=== PATIENT | female | born 1980 | race Caucasian/White ===

== ENCOUNTER 2016-03-15 19:34 | Emergency (ER) | payer OTHER ==
[2016-03-15 19:38] VITALS: BP 155/84
[2016-03-15] MEDS ORDERED: Clindamycin CAP* 150 MG PO ONE (19:54)
[2016-03-15] MEDS ORDERED: Lidocaine 2% VISCOUS* 15 ML UDC SWISH SPIT ONE (19:54)
[2016-03-15] MEDS ORDERED: oxyCODONE/Acetamin 5/325 MG* TAB PO ONE (19:54)
--- NOTE | 2016-03-15 20:08 | ED ---
Throat Pain/Nasal Congestion - HPI Summary HPI Summary: 35 y/o female with h/o pain in wisdom tooth (back posterior L) x 3 week, increasing in pain, noted increased swelling and pain over past 24 hours, no fever, chills, no drainage in mouth but + mouth sores x 2 weeks. H/O mouth sores in past. Patient called dentist today did not get call back. - History of Current Complaint Chief Complaint: EDDentalPain Time Seen by Provider: 03/15/16 19:41 Hx Obtained From: Patient Onset/Duration: Gradual Onset, Lasting Weeks, Still Present Severity: Moderate Associated Signs And Symptoms: Positive: Negative Related History: Smoking - Allergies/Home Medications Allergies/Adverse Reactions: Allergies Allergy/AdvReac Type Severity Reaction Status Date / Time Ibuprofen [From Motrin] Allergy Severe Shortness Verified 02/26/16 01:09 of Breath Loratadine [From Claritin-D] Allergy Severe Shortness Verified 02/26/16 01:09 of Breath Pseudoephedrine Allergy Severe Shortness Verified 02/26/16 01:09 [From Claritin-D] of Breath Amoxicillin Allergy Intermediate Rash And Verified 02/26/16 01:09 Itching Aspirin Allergy Intermediate Rash And Verified 02/26/16 01:09 Itching Penicillins Allergy Intermediate Rash And Verified 02/26/16 01:09 Itching Latex Allergy Mild Rash And Verified 02/26/16 01:09 Itching Perfume Allergy Mild Difficulty Verified 02/26/16 01:09 Breathing Shellfish Allergy Allergy Mild Rash Verified 02/26/16 01:09 Adhesive Tape Allergy Rash Verified 02/26/16 01:09 Lactose Intolerance (GI) AdvReac Diarrhea Verified 02/26/16 01:09 tegaderm Allergy Rash Uncoded 02/26/16 01:09 milk AdvReac Diarrhea Uncoded 02/26/16 01:09 PMH/Surg Hx/FS Hx/Imm Hx Previously Healthy: No Endocrine/Hematology History: Reports: Hx Anemia - NOT CURRENTLY Denies: Hx Anticoagulant Therapy, Hx Diabetes, Hx Thyroid Disease Cardiovascular History: Denies: Hx Hypertension, Hx Pacemaker/ICD Respiratory History: Reports: Hx Asthma Denies: Hx Chronic Obstructive Pulmonary Disease (COPD) GI History: Reports: Hx Irritable Bowel Denies: Hx Ulcer History: Reports: Hx Kidney Infection - HX OF Denies: Hx Renal Disease Musculoskeletal History: Reports: Hx Arthritis - LUMBAR, Hx Back Problems, Hx Scoliosis Sensory History: Reports: Hx Contacts or Glasses - GLASSES Denies: Hx Hearing Aid Opthamlomology History: Reports: Hx Contacts or Glasses - GLASSES Neurological History: Reports: Hx Migraine - OCC, Other Neuro Impairments/ 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 nasal Hx Anesthesia Reactions: No - Immunization History Date of Tetanus Vaccine: Unk Date of Influenza Vaccine: Fall 2012 Infectious Disease History: No Infectious Disease History: Reports: Hx of Known/Suspected MRSA Denies: Hx Hepatitis, Hx Human Immunodeficiency Virus (HIV), History Other Infectious Disease, Traveled Outside the [place] in Last 30 Days - Family History Known Family History: Positive: Diabetes - Social History Alcohol Use: None Hx Substance Use: No Substance Use Type: Reports: None Substance Use Comment - Amount & Last Used: medical marijauna- asthma- and black outs Hx Tobacco Use: No Smoking Status (MU): Heavy Every Day Tobacco Smoker Length of Time of Smoking/Using Tobacco: 2 yrs Have You Smoked in the Last Year: No Review of Systems Constitutional: Negative Eyes: Negative Positive: Dental Pain Cardiovascular: Negative Respiratory: Negative Gastrointestinal: Negative Genitourinary: Negative Positive: Edema - mild edema over L cheek Skin: Negative Neurological: Negative Psychological: Normal All Other Systems Reviewed And Are Negative: Yes Physical Exam Triage Information Reviewed: Yes Vital Signs On Initial Exam: Initial Vitals Temp Pulse Resp BP Pulse Ox 99.3 F 96 16 155/84 100 03/15/16 19:35 03/15/16 19:35 03/15/16 19:35 03/15/16 19:35 03/15/16 19:35 Vital Signs Reviewed: Yes Appearance: Positive: Well-Appearing, Well-Nourished, Pain Distress - mild Skin: Positive: Warm, Skin Color Reflects Adequate Perfusion Head/Face: Positive: Normal Head/Face Inspection Eyes: Positive: Normal, EOMI, Conjunctiva Clear ENT: Positive: Normal ENT inspection, Hearing grossly normal, Pharynx normal, Other - mucosa pink, no drainage noted, two small superficial sores noted over L cheek and under tongue, left side, no drainage, minimal erythema on edges, pain with palpation over L lower molar, no fluctuant mass, no warmth, no erythema. minimal fullness, no fluctuance over outer cheek, no LAD, full cervical spine motion, no erythema outside cheek. Diagnostics - Vital Signs Vital Signs Temp Pulse Resp BP Pulse Ox 03/15/16 19:35 99.3 F 96 16 155/84 100 - Laboratory Lab Statement: Any lab studies that have been ordered have been reviewed, and results considered in the medical decision making process. EENT Course/Dx - Course Course Of Treatment: lidocaine lolipop given, percocet to go home with, lidocaine swish and swallow, clindamycin for possible infection, f/u with dentist tomorrow. - Diagnoses Provider Diagnoses: Toothache, Canker sores oral Discharge - Discharge Plan Condition: Good Disposition: HOME Prescriptions: Clindamycin CAP* [Cleocin 150 MG CAP*] 150 mg PO Q6H #40 cap Lidocaine 2% VISCOUS* 20 ml .SEE ORDER Q8H PRN #200 ml PRN Reason: Pain oxyCODONE/Acetamin 5/325 MG* [Percocet 5/325 TAB*] 1 tab PO Q8H PRN #5 tab MDD 3 PRN Reason: Pain Patient Education Materials: Canker Sores (ED), Narcotic Pain Management (ED), Toothache (ED) Referrals: No Primary Care Phys,NOPCP [Primary Care Provider] - Additional Instructions: - Lidocaine swish and swallow every 8 hours as needed for mouth sore pain - Do not gargle with alcohol or hydrogen peroxide, rinse with water after eating - Percocet as needed for severe pain - Clindamycin 150mg every 6 hours for possible infection x 10 days - Follow up with your dentist tomorrow - REturn to ER with increased pain, swelling, fever, chills
== END 2016-03-15 20:27 | disposition home or self-care (01) ==
LOC: ED 19:34
DX: K08.89 Other specified disorders of teeth and supporting structures (principal); K12.0 Recurrent oral aphthae; Z88.6 Allergy status to analgesic agent; Z88.0 Allergy status to penicillin; Z88.8 Allergy status to other drugs, medicaments and biological substances; F17.210 Nicotine dependence, cigarettes, uncomplicated
CPT/HCPCS: 99282; A9270-GY

== ENCOUNTER 2016-03-31 13:33 | Emergency (ER) | payer OTHER ==
[2016-03-31 13:43] VITALS: BP 155/78
--- NOTE | 2016-03-31 13:56 | ED ---
Throat Pain/Nasal Congestion - HPI Summary HPI Summary: 35 female presents today complaining of nosebleeds that occurred yesterday on and this morning 03/31/16 around 11a. She states yesterday the 2 nosebleeds lasted a few hours and was difficult to stop and today her nose bleed lasted around 15 minutes. It currently is not actively bleeding. It hasn' t the past few hours. Patient's CPS worker suggested she get checked out either here or at the . She states she sometimes feels dizzy but she has vertigo and it was mainly from looking at all the blood. She does not feel dizzy or lightheaded right now. She states she had iron deficiency anemia when she was and nasal reconstruction when she was 16. She also was unsure if there were stitches still in her nose from the surgery when she was 16 years old that are possibly causing the bleeding. Denies difficulty breathing, SOB, chest pain and pain anywhere. No recent trauma to this nose. She states pinching her nares and tilting her head to the side helped stop the bleeding. She has not used any nasal sprays. She does use a humidifier at home and prophylactically uses vasoline in both nares. - History of Current Complaint Chief Complaint: EDEpistaxis Time Seen by Provider: 03/31/16 13:51 Hx Obtained From: Patient Onset/Duration: Sudden Onset Severity: Mild Associated Signs And Symptoms: Positive: Nasal Discharge - bleeding, not currently Cough: None - Allergies/Home Medications Allergies/Adverse Reactions: Allergies Allergy/AdvReac Type Severity Reaction Status Date / Time Ibuprofen [From Motrin] Allergy Severe Shortness Verified 02/26/16 01:09 of Breath Loratadine [From Claritin-D] Allergy Severe Shortness Verified 02/26/16 01:09 of Breath Pseudoephedrine Allergy Severe Shortness Verified 02/26/16 01:09 [From Claritin-D] of Breath Amoxicillin Allergy Intermediate Rash And Verified 02/26/16 01:09 Itching Aspirin Allergy Intermediate Rash And Verified 02/26/16 01:09 Itching Penicillins Allergy Intermediate Rash And Verified 02/26/16 01:09 Itching Latex Allergy Mild Rash And Verified 02/26/16 01:09 Itching Perfume Allergy Mild Difficulty Verified 02/26/16 01:09 Breathing Shellfish Allergy Allergy Mild Rash Verified 02/26/16 01:09 Adhesive Tape Allergy Rash Verified 02/26/16 01:09 Lactose Intolerance (GI) AdvReac Diarrhea Verified 02/26/16 01:09 tegaderm Allergy Rash Uncoded 02/26/16 01:09 milk AdvReac Diarrhea Uncoded 02/26/16 01:09 PMH/Surg Hx/FS Hx/Imm Hx Endocrine/Hematology History: Reports: Hx Anemia - NOT CURRENTLY Denies: Hx Anticoagulant Therapy, Hx Diabetes, Hx Thyroid Disease Cardiovascular History: Denies: Hx Hypertension, Hx Pacemaker/ICD Respiratory History: Reports: Hx Asthma Denies: Hx Chronic Obstructive Pulmonary Disease (COPD) GI History: Reports: Hx Irritable Bowel Denies: Hx Ulcer History: Reports: Hx Kidney Infection - HX OF Denies: Hx Renal Disease Musculoskeletal History: Reports: Hx Arthritis - LUMBAR, Hx Back Problems, Hx Scoliosis Sensory History: Reports: Hx Contacts or Glasses - GLASSES Denies: Hx Hearing Aid Opthamlomology History: Reports: Hx Contacts or Glasses - GLASSES Neurological History: Reports: Hx Migraine - OCC, Other Neuro Impairments/ 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 nasal Hx Anesthesia Reactions: No - Immunization History Date of Tetanus Vaccine: Unk Date of Influenza Vaccine: Fall 2012 Infectious Disease History: No Infectious Disease History: Reports: Hx of Known/Suspected MRSA Denies: Hx Hepatitis, Hx Human Immunodeficiency Virus (HIV), History Other Infectious Disease, Traveled Outside the [place] in Last 30 Days - Family History Known Family History: Positive: Diabetes - Social History Alcohol Use: None Hx Substance Use: No Substance Use Type: Reports: None Substance Use Comment - Amount & Last Used: medical marijauna- asthma- and black outs Hx Tobacco Use: No Smoking Status (MU): Heavy Every Day Tobacco Smoker Length of Time of Smoking/Using Tobacco: 2 yrs Have You Smoked in the Last Year: No Review of Systems Constitutional: Negative Eyes: Negative Positive: Epistaxis - prior to arrival, not actively bleeding Cardiovascular: Negative Respiratory: Negative Gastrointestinal: Negative Skin: Negative Neurological: Negative - some dizziness when looking at the blood, not currently Psychological: Normal All Other Systems Reviewed And Are Negative: Yes Physical Exam Triage Information Reviewed: Yes Vital Signs On Initial Exam: Initial Vitals Temp Pulse Resp BP Pulse Ox 98.4 F 81 20 155/78 100 03/31/16 13:39 03/31/16 13:39 03/31/16 13:39 03/31/16 13:39 03/31/16 13:39 BP elevated. compared to previous visits and similar ranges. Vital Signs Reviewed: Yes Appearance: Positive: Well-Appearing, No Pain Distress, Well-Nourished Skin: Positive: Warm, Skin Color Reflects Adequate Perfusion - <2 seconds, no nail pitting, Dry. Negative: Diaphoretic Head/Face: Positive: Normal Head/Face Inspection Eyes: Positive: Normal ENT: Positive: Hearing grossly normal, Pharynx normal - no smooth tongue noted, well hydrated, TMs normal, Other - minimal dried blood noted in right nare. no signs of trauma. no step-off, crepitus or racoon eyes. no active bleeding source noted. cauterize and packing not needed at this time. allergy to pseudoepherine so some NS was sprayed in both nares to help mosturize and prevent recurrent epistaxis. no septal hematoma present.. Negative: Nasal congestion, Nasal drainage Neck: Positive: Supple, Nontender, No Lymphadenopathy Respiratory/Lung Sounds: Positive: Clear to Auscultation, Breath Sounds Present , Decreased Breath Sounds Cardiovascular: Positive: Normal, RRR, Pulses are Symmetrical in both Upper and Lower Extremities Neurological: Positive: Normal, Sensory/Motor Intact, Alert, Oriented to Person Place, Time. Negative: Disoriented Psychiatric: Positive: Affect/Mood Appropriate Diagnostics - Vital Signs Vital Signs Temp Pulse Resp BP Pulse Ox 03/31/16 13:39 98.4 F 81 20 155/78 100 - Laboratory Lab Statement: Any lab studies that have been ordered have been reviewed, and results considered in the medical decision making process. EENT Course/Dx - Course Course Of Treatment: patient has allergy to pseudoephedrine so NS was used to spray in both nares to prevent reurrent epistaxis. instructed on proper way to stop nasal bleeding. told to get saline spray OTC and advised to have bloodowork with mental health doctor if she is still concerned with Fe def anemia. did not feel the need at this time. also recommended to follow up with communications specialist she seen for nasal surgery if nosebleeds persist. aware of worsening symptoms to watch out for. - Differential Diagnoses Differential Diagnoses: Epistaxis, Polyps, Sinusitis - Diagnoses Provider Diagnoses: Anterior epistaxis, Right-sided epistaxis Discharge - Discharge Plan Condition: Stable Disposition: HOME Patient Education Materials: Nosebleed (ED) Referrals: No Primary Care Phys,NOPCP [Primary Care Provider] - [facility] [facility]FERR[facility] [Outside] Additional Instructions: Use OTC Saline [place] to help prevent nosebleeds. Continue using humidifiers in your house to keep air moist and vasoline in nares as needed. Avoid taking medications such as aspirin and anti-inflammatory medications like motrin or tylenol for the next few days. Drink plenty of fluids. Follow-up with your primary care doctor or communications specialist for further evaluation. If another one occurs and bleeding lasts longer than 2 hours please seek medical attention promptly for further action such as packing.
== END 2016-03-31 14:25 | disposition home or self-care (01) ==
LOC: ED 13:33
DX: R04.0 Epistaxis (principal); Z72.0 Tobacco use; J45.909 Unspecified asthma, uncomplicated; Z88.0 Allergy status to penicillin; Z88.6 Allergy status to analgesic agent
CPT/HCPCS: 99282

== ENCOUNTER 2016-08-02 22:12 | Emergency (ER) | payer OTHER ==
[2016-08-02] MEDS ORDERED: Acetaminophen TAB* 325 MG PO ONE (23:01)
[2016-08-02 23:50] LABS: Hematocrit 41 % (35-47); Hemoglobin 13.6 g/dl (12.0-16.0); Mean Corpuscular HGB Conc 33 g/dl (31-36); Mean Corpuscular Hemoglobin 27 pg (27-31); Mean Corpuscular Volume 82 fL (80-97); Mean Platelet Volume 9 um3 (7.4-10.4); Red Cell Distribution Width 15 % (10.5-15); White Blood Count 9.8 10^3/ul (3.5-10.8)
[2016-08-02 23:59] LABS: ALT 15 U/L (7-52); AST 17 U/L (13-39); Albumin 3.7 g/dL (3.2-5.2); Alkaline Phosphatase 65 U/L (34-104); Anion Gap 5 mmol/L (2-11); BUN/Creatinine Ratio 13.2 (8-20); Blood Urea Nitrogen 10 mg/dL (6-24); CO2 Carbon Dioxide 26 mmol/L (22-32); Calcium 8.7 mg/dL (8.6-10.3); Chloride 105 mmol/L (101-111); EGFR African American 109.5 (>60); EGFR Non-African American 85.2 (>60); Globulin 2.8 g/dL (2-4); Glucose 119 mg/dL (70-100); Potassium 3.2 mmol/L (3.5-5.0); Sodium 136 mmol/L (133-145); Total Protein 6.5 g/dL (6.4-8.9)
[2016-08-03 00:17] VITALS: BP 126/72
--- NOTE | 2016-08-03 00:29 | ED ---
GI/ HPI - HPI Summary HPI Summary: Patient presents to ED with CC of vaginal bleeding since yesterday soaking through 3 pads since 2pm this afternoon - approx 6 hours ago. She is also passing blood clots. She denies vaginal bleeding since arrival to the ED. She was on the depoprovera shot until 3 months ago and has not had vaginal bleeding until yesterday. She notes to a D and C prior to the of her child and several cancers run in her family and she is concerned about CA. She admits to chills, sweats and fevers yesterday, but nothing today or currently. She has not felt dizzy or lightheaded. She notes to a 10/10 pain which is located suprapubically. She denies urinary symptoms or back pain. She has never been dx with endometriosis or fibroids. - History of Current Complaint Chief Complaint: EDVaginalBleeding Time Seen by Provider: 08/02/16 22:48 Stated Complaint: VAGINAL BLEEDING Hx Obtained From: Patient Onset/Duration: Started Days Ago Timing: Constant Severity: Moderate Current Severity: Moderate Vaginal Bleeding Description: Bright Red Number of Pads per Day: 6 Number of Pads per Hour: 1 Pain Intensity: 10 Location of Pain: Suprapubic Additional Location for Females: Uterus Pain Characteristics: Sharp, Cramping Associated Signs and Symptoms: Positive: Negative Additional Signs & Symptoms: Positive: Depo provera Aggravating Factor(s): Nothing Alleviating Factor(s): Nothing - Allergy/Home Medications Allergies/Adverse Reactions: Allergies Allergy/AdvReac Type Severity Reaction Status Date / Time Ibuprofen [From Motrin] Allergy Severe Shortness Verified 02/26/16 01:09 of Breath Loratadine [From Claritin-D] Allergy Severe Shortness Verified 02/26/16 01:09 of Breath Pseudoephedrine Allergy Severe Shortness Verified 02/26/16 01:09 [From Claritin-D] of Breath Amoxicillin Allergy Intermediate Rash And Verified 02/26/16 01:09 Itching Aspirin Allergy Intermediate Rash And Verified 02/26/16 01:09 Itching Penicillins Allergy Intermediate Rash And Verified 02/26/16 01:09 Itching Latex Allergy Mild Rash And Verified 02/26/16 01:09 Itching Perfume Allergy Mild Difficulty Verified 02/26/16 01:09 Breathing Shellfish Allergy Allergy Mild Rash Verified 02/26/16 01:09 Adhesive Tape Allergy Rash Verified 02/26/16 01:09 Lactose Intolerance (GI) AdvReac Diarrhea Verified 02/26/16 01:09 tegaderm Allergy Rash Uncoded 02/26/16 01:09 milk AdvReac Diarrhea Uncoded 02/26/16 01:09 PMH/Surg Hx/FS Hx/Imm Hx Previously Healthy: Yes Endocrine/Hematology History: Reports: Hx Anemia - NOT CURRENTLY Denies: Hx Anticoagulant Therapy, Hx Diabetes, Hx Thyroid Disease Cardiovascular History: Denies: Hx Hypertension, Hx Pacemaker/ICD Respiratory History: Reports: Hx Asthma Denies: Hx Chronic Obstructive Pulmonary Disease (COPD) GI History: Reports: Hx Irritable Bowel Denies: Hx Ulcer History: Reports: Hx Kidney Infection - HX OF Denies: Hx Renal Disease Musculoskeletal History: Reports: Hx Arthritis - LUMBAR, Hx Back Problems, Hx Scoliosis Sensory History: Reports: Hx Contacts or Glasses - GLASSES Denies: Hx Hearing Aid Opthamlomology History: Reports: Hx Contacts or Glasses - GLASSES Neurological History: Reports: Hx Migraine - OCC, Other Neuro Impairments/ 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 nasal Hx Anesthesia Reactions: No - Immunization History Date of Tetanus Vaccine: Unk Date of Influenza Vaccine: Fall 2012 Hx Pertussis Vaccination: No Immunizations Up to Date: Unable to Obtain/Confirm Infectious Disease History: No Infectious Disease History: Reports: Hx of Known/Suspected MRSA Denies: Hx Hepatitis, Hx Human Immunodeficiency Virus (HIV), History Other Infectious Disease, Traveled Outside the [place] in Last 30 Days - Family History Known Family History: Positive: Diabetes - Social History Occupation: Unemployed Lives: With Family Alcohol Use: None Hx Substance Use: No Substance Use Type: Reports: None Substance Use Comment - Amount & Last Used: medical marijauna- asthma- and black outs Hx Tobacco Use: No Smoking Status (MU): Heavy Every Day Tobacco Smoker Length of Time of Smoking/Using Tobacco: 2 yrs Have You Smoked in the Last Year: No Review of Systems Constitutional: Negative Eyes: Negative Cardiovascular: Negative Respiratory: Negative Positive: no symptoms reported, see HPI, other - vaginal bleeding Skin: Negative Neurological: Negative All Other Systems Reviewed And Are Negative: Yes Physical Exam Triage Information Reviewed: Yes Vital Signs On Initial Exam: Initial Vitals Temp Pulse Resp BP Pulse Ox 98 F 88 20 135/65 95 08/02/16 22:27 08/02/16 22:27 08/02/16 22:27 08/02/16 22:27 08/02/16 22:27 Vital Signs Reviewed: Yes Appearance: Positive: Well-Appearing, No Pain Distress, Well-Nourished Skin: Positive: Warm, Skin Color Reflects Adequate Perfusion Head/Face: Positive: Normal Head/Face Inspection Eyes: Positive: EOMI, SYLWIA, Conjunctiva Clear Neck: Positive: Supple, No Lymphadenopathy Respiratory/Lung Sounds: Positive: Clear to Auscultation, Breath Sounds Present Cardiovascular: Positive: Normal, RRR, Pulses are Symmetrical in both Upper and Lower Extremities Abdomen Description: Positive: Nontender, Soft Musculoskeletal: Positive: Normal, Strength/ROM Intact Neurological: Positive: Speech Normal - Bindu Coma Scale Coma Scale Total: 15 Diagnostics - Vital Signs Vital Signs Temp Pulse Resp BP Pulse Ox 08/03/16 00:16 98.6 F 63 16 126/72 08/02/16 22:27 98 F 88 20 135/65 95 - Laboratory Lab Results: Lab Results 08/02/16 08/02/16 Range/Units 23:31 23:31 WBC 9.8 (3.5-10.8) 10^3/ul RBC 5.00 (4.0-5.4) 10^6/ul Hgb 13.6 (12.0-16.0) g/dl Hct 41 (35-47) % MCV 82 (80-97) fL MCH 27 (27-31) pg MCHC 33 (31-36) g/dl RDW 15 (10.5-15) % Plt Count 225 (150-450) 10^3/ul MPV 9 (7.4-10.4) um3 Neut % (Auto) 70.1 (38-83) % Lymph % (Auto) 23.4 L (25-47) % Jack % (Auto) 4.0 (1-9) % Eos % (Auto) 1.8 (0-6) % Baso % (Auto) 0.7 (0-2) % Absolute Neuts (auto) 6.9 (1.5-7.7) 10^3/ul Absolute Lymphs (auto) 2.3 (1.0-4.8) 10^3/ul Absolute Monos (auto) 0.4 (0-0.8) 10^3/ul Absolute Eos (auto) 0.2 (0-0.6) 10^3/ul Absolute Basos (auto) 0.1 (0-0.2) 10^3/ul Absolute Nucleated RBC 0 10^3/ul Nucleated RBC % 0 Sodium 136 (133-145) mmol/L Potassium 3.2 L (3.5-5.0) mmol/L Chloride 105 (101-111) mmol/L Carbon Dioxide 26 (22-32) mmol/L Anion Gap 5 (2-11) mmol/L BUN 10 (6-24) mg/dL Creatinine 0.76 (0.51-0.95) mg/dL Est GFR ( Amer) 109.5 (>60) Est GFR (Non-Af Amer) 85.2 (>60) BUN/Creatinine Ratio 13.2 (8-20) Glucose 119 H (70-100) mg/dL Calcium 8.7 (8.6-10.3) mg/dL Total Bilirubin 0.20 (0.2-1.0) mg/dL AST 17 (13-39) U/L ALT 15 (7-52) U/L Alkaline Phosphatase 65 (34-104) U/L Total Protein 6.5 (6.4-8.9) g/dL Albumin 3.7 (3.2-5.2) g/dL Globulin 2.8 (2-4) g/dL Albumin/Globulin Ratio 1.3 (1-3) Beta HCG, Quant < 0.60 mIU/mL Result Diagrams: 08/02/16 23:31 08/02/16 23:31 Lab Statement: Any lab studies that have been ordered have been reviewed, and results considered in the medical decision making process. GIGU Course/Dx - Course Course Of Treatment: Patient arrives with vaginal bleeding x 2 days with soaking through 6 pads per day. She dc'd the depo shot 3 months ago and this is her first BTB. Bright red blood with clots. She took tranexamic acid which she was prescribed a few years ago for similar symptoms but without relief. Dr. Rasheed called and consulted. No Transvaginal US is needed. Will follow up in office d/t stable VS and H and H WNL. Patient is OK with discharge. Encouraged Tylenol. - Diagnoses Differential Diagnoses - Female: Other - vaginal bleeding, endometriosis, ovarian pathology Provider Diagnoses: Vaginal bleeding Discharge - Discharge Plan Condition: Stable Disposition: HOME Patient Education Materials: Dysfunctional Uterine Bleeding (ED) Referrals: Beny Rasheed MD [Medical Doctor] - Madhu Vaz NP [Primary Care Provider] - Additional Instructions: Follow up with DR. Rasheed. Call office tomorrow am. If you develop any fevers, chills, sweats, or dizziness/lightheadedness, come back to ED. Tylenol for discomfort. Heating pad to the area may help.
== END 2016-08-03 00:16 | disposition home or self-care (01) ==
LOC: ED 22:12
DX: N93.9 Abnormal uterine and vaginal bleeding, unspecified (principal); Z88.6 Allergy status to analgesic agent; Z88.0 Allergy status to penicillin; Z72.0 Tobacco use
CPT/HCPCS: 36415; 80053; 84702; 85025; 99283; A9270-GY

== ENCOUNTER 2018-04-24 01:35 | Emergency (ER) | payer OTHER ==
[2018-04-24] MEDS ORDERED: oxyCODONE/Acetamin 5/325 MG* TAB PO ONE (02:08)
[2018-04-24] MEDS ORDERED: Cyclobenzaprine TAB* 10 MG PO ONE (02:08)
[2018-04-24 03:31] VITALS: BP 120/68
--- NOTE | 2018-04-24 05:53 | ED ---
Complex/Multi-Sys Presentation - HPI Summary HPI Summary: The patient is a 37 year old female who is presenting to the [facility] with a chief complaint of lower back pain s/p fall. Earlier on 02/19/19, the patient had reportedly fallen over a boxes and landed on her right hip. The patient reports of ecchymosis on the buttocks and on the dorsal side of the right arm. After the onset of the injury, the patient reports of vomiting at the scene of the incident. Patient also reports of HASTINGS and pain that radiates to the lower extremities. Medications reported to be blood pressure medication. The patient is not on any blood thinners. The pain is rated to be a 10/10 in severity. Symptoms alleviated by nothing. Symptoms aggravated by nothing. - History Of Current Complaint Chief Complaint: EDHipPelvisInjury Time Seen by Provider: 04/24/18 01:59 Hx Obtained From: Patient Onset/Duration: Sudden Onset Timing: Constant Severity Currently: Severe Severity Initially: Severe Location: Pain At: - Lower back, Radiates To: - Lower extremities. Aggravating Factor(s): Nothing Alleviating Factor(s): Nothing Associated Signs And Symptoms: Positive: Headache, Other - Ecchymosis at right upper arm and right buttocks - Allergies/Home Medications Allergies/Adverse Reactions: Allergies Allergy/AdvReac Type Severity Reaction Status Date / Time MS Ibuprofen [From Motrin] Allergy Severe Shortness Verified 02/26/16 01:09 of Breath MS Loratadine Allergy Severe Shortness Verified 02/26/16 01:09 [From Claritin-D] of Breath MS Pseudoephedrine Allergy Severe Shortness Verified 02/26/16 01:09 [From Claritin-D] of Breath MS Amoxicillin [Amoxicillin] Allergy Intermediate Rash And Verified 02/26/16 01: 09 Itching MS Aspirin [Aspirin] Allergy Intermediate Rash And Verified 02/26/16 01:09 Itching MS Penicillins [Penicillins] Allergy Intermediate Rash And Verified 02/26/16 01: 09 Itching MS Latex [Latex] Allergy Mild Rash And Verified 02/26/16 01:09 Itching MS Shellfish Allergy Allergy Mild Rash Verified 02/26/16 01:09 [Shellfish Allergy] Perfume Allergy Mild Difficulty Verified 02/26/16 01:09 Breathing Adhesive Tape Allergy Rash Verified 02/26/16 01:09 MS Lactose Intolerance (GI) AdvReac Diarrhea Verified 02/26/16 01:09 [Lactose Intolerance (GI)] tegaderm Allergy Rash Uncoded 02/26/16 01:09 milk AdvReac Diarrhea Uncoded 02/26/16 01:09 PMH/Surg Hx/FS Hx/Imm Hx Endocrine/Hematology History: Reports: Hx Anemia - NOT CURRENTLY Denies: Hx Anticoagulant Therapy, Hx Diabetes, Hx Thyroid Disease Cardiovascular History: Denies: Hx Hypertension, Hx Pacemaker/ICD Respiratory History: Reports: Hx Asthma Denies: Hx Chronic Obstructive Pulmonary Disease (COPD) GI History: Reports: Hx Irritable Bowel Denies: Hx Ulcer History: Reports: Hx Kidney Infection - HX OF Denies: Hx Renal Disease Musculoskeletal History: Reports: Hx Arthritis - LUMBAR, Hx Back Problems, Hx Scoliosis Sensory History: Reports: Hx Contacts or Glasses - GLASSES Denies: Hx Hearing Aid Opthamlomology History: Reports: Hx Contacts or Glasses - GLASSES Neurological History: Reports: Hx Migraine - OCC, Other Neuro Impairments/ 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 nasal Hx Anesthesia Reactions: No - Immunization History Date of Tetanus Vaccine: Unk Date of Influenza Vaccine: Fall 2012 Infectious Disease History: No Infectious Disease History: Reports: Hx of Known/Suspected MRSA Denies: Hx Hepatitis, Hx Human Immunodeficiency Virus (HIV), History Other Infectious Disease, Traveled Outside the [place] in Last 30 Days - Family History Known Family History: Positive: Diabetes, Non-Contributory - Social History Alcohol Use: None Hx Substance Use: No Substance Use Type: Reports: None Substance Use Comment - Amount & Last Used: medical marijauna- asthma- and black outs Hx Tobacco Use: No Smoking Status (MU): Former Smoker Length of Time of Smoking/Using Tobacco: 2 yrs Have You Smoked in the Last Year: No Review of Systems Constitutional: Negative Eyes: Negative ENT: Negative Cardiovascular: Negative Respiratory: Negative Positive: Vomiting Genitourinary: Negative Musculoskeletal: Other - Lower back pain that radiates to the lower extremities Positive: Bruising - Right upper arm and right buttocks Positive: Headache Psychological: Normal All Other Systems Reviewed And Are Negative: Yes Physical Exam - Summary Physical Exam Summary: VITAL SIGNS: Reviewed. GENERAL: Patient is a well-developed and nourished (FEMALE) who is lying comfortable in the stretcher. Patient is not in any acute respiratory distress. HEAD AND FACE: No signs of trauma. No ecchymosis, hematomas or skull depressions. No sinus tenderness. EYES: PERRLA, EOMI x 2, No injected conjunctiva, no nystagmus. EARS: Hearing grossly intact. Ear canals and tympanic membranes are within normal limits. MOUTH: Oropharynx within normal limits. NECK: Supple, trachea is midline, no adenopathy, no JVD, no carotid bruit, no c- spine tenderness, neck with full ROM. CHEST: Symmetric, no tenderness at palpation LUNGS: Clear to auscultation bilaterally. No wheezing or crackles. CVS: Regular rate and rhythm, S1 and S2 present, no murmurs or gallops appreciated. ABDOMEN: Soft, non-tender. No signs of distention. No rebound no guarding, and no masses palpated. Bowel sounds are normal. EXTREMITIES: FROM in all major joints, no cyanosis or clubbing. NEURO: Alert and oriented x 3. No acute neurological deficits. Speech is normal and follows commands. SKIN: Localized ecchymotic area over the right buttocks and right upper arm Triage Information Reviewed: Yes Vital Signs On Initial Exam: Initial Vitals Temp Pulse Resp BP Pulse Ox 97.8 F 78 18 145/83 98 04/24/18 01:46 04/24/18 01:46 04/24/18 01:46 04/24/18 01:46 04/24/18 01:46 Vital Signs Reviewed: Yes Diagnostics - Vital Signs Vital Signs Temp Pulse Resp BP Pulse Ox 04/24/18 03:29 98.6 F 70 18 120/68 99 04/24/18 02:21 18 04/24/18 01:46 97.8 F 78 18 145/83 98 - Laboratory Lab Statement: Any lab studies that have been ordered have been reviewed, and results considered in the medical decision making process. Complex Multi-Symp Course/Dx Course Of Treatment: The patient is a 37 year old female who is presenting to the [facility] with a chief complaint of lower back pain s/p fall. The patient has a history of lower back pain and presents two localized area of brusing as per physical exam findings. The patient will be discharged home with a dx of contusion. We recommended that the patient follow up with her primary care physician. - Diagnoses Provider Diagnoses: Contusion Discharge - Sign-Out/Discharge Documenting (check all that apply): Patient Departure - Discharge Home Patient Received Moderate/Deep Sedation with Procedure: No - Discharge Plan Condition: Stable Disposition: HOME Prescriptions: oxyCODONE/Acetamin 5/325 MG* [Percocet 5/325 TAB*] 1 tab PO Q6H PRN #10 tab MDD 4 PRN Reason: Pain Patient Education Materials: Contusion in Adults (ED) Referrals: Micky Nagy MD [Primary Care Provider] - Additional Instructions: RETURN TO THE EMERGENCY DEPARTMENT FOR CHANGING OR WORSENING SYMPTOMS. FOLLOW UP WITH Primary care physician IN 1-2 DAYS. - Attestation Statements Document Initiated by Scribe: Yes Documenting Scribe: Judson Delacruz Provider For Whom Scribe is Documenting (Include Credential): Dr. Drake Mayfield Scribe Attestation: Judson Venegas, scribed for Dr. Drake Mayfield on 04/24/18 at 0602. Status of Scribe Document: Ready
== END 2018-04-24 03:29 | disposition home or self-care (01) ==
LOC: ED 01:35
DX: T14.8XXA Other injury of unspecified body region, initial encounter (principal); W18.09XA Striking against other object with subsequent fall, initial encounter; Y92.9 Unspecified place or not applicable; J45.909 Unspecified asthma, uncomplicated; Z87.891 Personal history of nicotine dependence
CPT/HCPCS: 99283; A9270-GY

== ENCOUNTER 2018-09-11 08:32 | Emergency (ER) | payer OTHER ==
[2018-09-11] MEDS ORDERED: Albuterol 2.5 MG/3 ML NEB.SOL* (0.083%) INH ONE (09:51)
--- NOTE | 2018-09-11 10:41 | UC ---
Respiratory Complaint HPI - HPI Summary HPI Summary: 3 DAYS OF COUGH, PLEURITIC PAIN RADIATING THROUGH TO HER BACK. HAS SUBJECTIVE FEVER AND OVERALL MALAISE WITH MILD CONGESTION AND SORE THROAT. HISTORY OF ASTHMA. LUNGS FEEL TIGHT. DENIES WHEEZE. - History of Current Complaint Chief Complaint: UCRespiratory Stated Complaint: CONGESTION/BACKPAIN Time Seen by Provider: 09/11/18 09:41 Hx Obtained From: Patient Hx Last Menstrual Period: 09/02/18 Onset/Duration: Gradual Onset, Lasting Days, Still Present Timing: Constant Severity Initially: Moderate Severity Currently: Moderate Pain Intensity: 10 Pain Scale Used: 0-10 Numeric Character: Cough: Nonproductive Aggravating Factors: Nothing Alleviating Factors: Nothing Associated Signs And Symptoms: Positive: Fever, URI, Nasal Congestion. Negative : Wheezing - Allergies/Home Medications Allergies/Adverse Reactions: Allergies Allergy/AdvReac Type Severity Reaction Status Date / Time ibuprofen [From Motrin] Allergy Severe Shortness Verified 09/11/18 08:56 of Breath loratadine [From Claritin-D] Allergy Severe Shortness Verified 09/11/18 08:56 of Breath pseudoephedrine Allergy Severe Shortness Verified 09/11/18 08:56 [From Claritin-D] of Breath amoxicillin Allergy Intermediate Rash And Verified 09/11/18 08:56 Itching aspirin Allergy Intermediate Rash And Verified 09/11/18 08:56 Itching Penicillins Allergy Intermediate Rash And Verified 09/11/18 08:56 Itching Perfume Allergy Mild Difficulty Verified 09/11/18 08:58 Breathing Adhesive Tape Allergy Rash Verified 09/11/18 08:58 lactose Allergy Diarrhea Verified 09/11/18 08:58 latex Allergy Rash And Verified 09/11/18 08:58 Itching shellfish derived Allergy Rash Verified 09/11/18 08:58 tegaderm Allergy Rash Uncoded 09/11/18 08:59 milk AdvReac Diarrhea Uncoded 09/11/18 08:59 Home Medications: Home Medications Irbesartan (NF) [Avapro (NF)] 75 mg PO DAILY 09/11/18 [History Confirmed ] PMH/Surg Hx/FS Hx/Imm Hx Respiratory History: Asthma Other History Of: Negative For: Anticoagulant Therapy - Surgical History Surgical History: Yes Surgery Procedure, Year, and Place: Tonsillectomy. nasal - Family History Known Family History: Positive: Diabetes - Social History Alcohol Use: Rare Substance Use Type: None Substance Use Comment - Amount & Last Used: medical [place]- asthma- and black outs Smoking Status (MU): Former Smoker Length of Time of Smoking/Using Tobacco: 2 yrs Have You Smoked in the Last Year: No When Did the Patient Quit Smoking/Using Tobacco: 2006 Household Exposure Type: Cigarettes - Immunization History Most Recent Influenza Vaccination: current Most Recent Tetanus Shot: 05/18/15 Most Recent Pneumonia Vaccination: none Review of Systems All Other Systems Reviewed And Are Negative: Yes Constitutional: Positive: Fever, Fatigue ENT: Positive: Sore Throat, Nasal Discharge Respiratory: Positive: Cough Cardiovascular: Positive: Negative Gastrointestinal: Positive: Negative Physical Exam Triage Information Reviewed: Yes Appearance: Well-Appearing, No Pain Distress, Well-Nourished Vital Signs: Initial Vital Signs Temp 97.8 F 09/11/18 08:40 Pulse 78 09/11/18 08:40 Resp 17 09/11/18 08:40 BP 145/101 09/11/18 08:40 Pulse Ox 100 09/11/18 08:40 Vital Signs Reviewed: Yes Eyes: Positive: Conjunctiva Clear ENT: Positive: Hearing grossly normal, Pharynx normal, TMs normal Neck: Positive: Supple, Nontender, No Lymphadenopathy Respiratory Exam: Normal Cardiovascular Exam: Normal Abdomen Description: Positive: Soft Musculoskeletal: Positive: No Edema Neurological: Positive: Alert Psychological: Positive: Age Appropriate Behavior Skin: Negative: Rashes Diagnostics - Radiology CXR Radiology Interpretation Completed By: Radiologist Summary of Radiographic Findings: NO ACTIVE CARDIOPULMONARY DISEASE. Re-Evaluation - Re-Evaluation First Eval Re-Evaluation Time: 10:40 - FEELS BETTER AFTER ALB NEB Change: Improved Respiratory Course/Dx - Differential Dx/Diagnosis Provider Diagnosis: Upper respiratory infection, Asthma Discharge - Sign-Out/Discharge Documenting (check all that apply): Patient Departure All imaging exams completed and their final reports reviewed: Yes - Discharge Plan Condition: Stable Disposition: HOME Prescriptions: Albuterol HFA INHALER* [Ventolin HFA Inhaler*] 2 puff INH Q4H PRN #1 mdi PRN Reason: Shortness Of Breath predniSONE TAB* [Deltasone TAB*] 50 mg PO DAILY #5 tab Patient Education Materials: Asthma (ED), Upper Respiratory Infection (ED) Referrals: [facility] [Outside] - If Needed Additional Instructions: CHEST X-RAY TODAY UNREMARKABLE. YOU FELT BETTER AFTER AN ALBUTEROL BREATHING TREATMENT. YOUR SYMPTOMS ARE LIKELY VIRALLY/ALLERGICALLY MEDIATED AND SHOULD RESOLVE ON THEIR OWN WITH TIME. YOUR ASTHMA SYMPTOMS MAY HAVE ALSO BEEN TRIGGERED. NO INDICATION FOR ANTIBIOTICS AT PRESENT. REST, HYDRATE, OTC MEDS NEEDED. WILL TREAT WITH PREDNISONE AND REFILL YOUR INHALER TO HELP WITH AIRWAY INFLAMMATION. CONTINUE YOUR ANTIHISTAMINE DAILY. SEEK FOLLOW-UP IF YOU ARE NOT IMPROVING OVER THE NEXT 1-2 WEEKS. CALL THE NUMBER BELOW FOR ASSISTANCE IN ESTABLISHING WITH A PCP An additional resource available to assist in finding the appropriate physician for your health care needs is the [facility] ([facility]). You may contact them by calling [phone]. - Billing Disposition and Condition Condition: STABLE Disposition: Home
[2018-09-11 11:16] VITALS: BP 137/77
== END 2018-09-11 10:50 | disposition home or self-care (01) ==
LOC: UCEAST 08:32
DX: J06.9 Acute upper respiratory infection, unspecified (principal); J45.909 Unspecified asthma, uncomplicated; Z88.0 Allergy status to penicillin; Z91.040 Latex allergy status; Z87.891 Personal history of nicotine dependence
CPT/HCPCS: 71046; 99212; G0463

== ENCOUNTER 2019-06-21 21:52 | Emergency (ER) | payer OTHER ==
--- NOTE | 2019-06-21 22:08 | ED ---
Shortness of Breath - HPI Summary HPI Summary: Patient complains of chronic COPD with associated wheezing and episodes of shortness of breath, chronic back spasm, nausea and vomiting starting yesterday. Patient has received new prescriptions for back spasm and COPD however states insurance is refusing to pay for her Breo. Patient has albuterol inhaler, currently taking prednisone, meloxicam for back spasm and Tessalon Perles for cough. Patient denies active SOB here in ED, CP, fever, sore throat, abdominal pain, change in urine, change in BM. Patient was hoping we could do something about her Breo. Medical history is COPD, asthma, chronic cough. Positive smoker. - History of Current Complaint Chief Complaint: EDGeneral Time Seen by Provider: 06/21/19 22:05 Hx Obtained From: Patient Onset/Duration: Gradual Onset, Lasting Weeks Timing: Intermittent Episodes Lasting: Current Severity: Moderate Dyspnea At: Rest Aggravating Factors: Allergens, Movement Alleviating Factors: Bronchodilators, OTC Meds, Spontaneous Resolution Associated Signs & Symptoms: Cough (Nonproductive), Wheezing - Allergy/Home Medications Allergies/Adverse Reactions: Allergies Allergy/AdvReac Type Severity Reaction Status Date / Time ibuprofen [From Motrin] Allergy Severe Shortness Verified 09/11/18 08:56 of Breath loratadine [From Claritin-D] Allergy Severe Shortness Verified 09/11/18 08:56 of Breath pseudoephedrine Allergy Severe Shortness Verified 09/11/18 08:56 [From Claritin-D] of Breath amoxicillin Allergy Intermediate Rash And Verified 09/11/18 08:56 Itching aspirin Allergy Intermediate Rash And Verified 09/11/18 08:56 Itching Penicillins Allergy Intermediate Rash And Verified 09/11/18 08:56 Itching Perfume Allergy Mild Difficulty Verified 09/11/18 08:58 Breathing Adhesive Tape Allergy Rash Verified 09/11/18 08:58 lactose Allergy Diarrhea Verified 09/11/18 08:58 latex Allergy Rash And Verified 09/11/18 08:58 Itching shellfish derived Allergy Rash Verified 09/11/18 08:58 tegaderm Allergy Rash Uncoded 09/11/18 08:59 milk AdvReac Diarrhea Uncoded 09/11/18 08:59 Home Medications: Home Medications Gabapentin CAP(*) [Neurontin 300 CAP(*)] 600 mg PO TID 12/23/16 [History Confirmed 06/21/19] Albuterol HFA INHALER* [Ventolin HFA Inhaler*] 2 puff INH Q4H PRN #1 mdi [Rx Confirmed 06/21/19] Benzonatate CAP* [Tessalon 100 MG CAP*] 200 mg PO TID PRN 06/21/19 [History Confirmed 06/21/19] Cetirizine* [ZyrTEC 10 MG TAB*] 10 mg PO DAILY 06/21/19 [History Confirmed 06/20] Fluticasone/Vilanterol MDI(NF) [Breo Ellipta MDI 100/25(NF)] 1 puff INH BID [History Confirmed 06/21/19] Irbesartan (NF) [Avapro (NF)] 150 mg PO DAILY 06/21/19 [History Confirmed ] Meloxicam(NF) [Mobic(NF)] 7.5 mg PO DAILY PRN 06/21/19 [History Confirmed ] Ondansetron ODT TAB* [Zofran 4 MG Odt TAB*] 4 mg PO Q8H PRN 4 Days #14 tab.odt 06/21/19 [Rx] Prazosin 1 mg CAP [Minipress 1 mg CAP] 2 mg PO BID 06/21/19 [History Confirmed 06/21/19] methylPREDNISolone TAB* [Medrol TAB*] 4 - 8 mg PO .SEE RISHABH 06/21/19 [History Confirmed 06/21/19] PMH/Surg Hx/FS Hx/Imm Hx Endocrine/Hematology History: Reports: Hx Anemia - NOT CURRENTLY Denies: Hx Anticoagulant Therapy, Hx Diabetes, Hx Thyroid Disease Cardiovascular History: Reports: Hx Hypertension Denies: Hx Pacemaker/ICD Respiratory History: Reports: Hx Asthma, Hx Chronic Obstructive Pulmonary Disease (COPD) GI History: Reports: Hx Irritable Bowel Denies: Hx Ulcer History: Reports: Hx Kidney Infection - HX OF Denies: Hx Renal Disease Musculoskeletal History: Reports: Hx Arthritis - LUMBAR, Hx Back Problems, Hx Scoliosis Sensory History: Reports: Hx Contacts or Glasses - GLASSES Denies: Hx Hearing Aid Opthamlomology History: Reports: Hx Contacts or Glasses - GLASSES Neurological History: Reports: Hx Migraine - OCC, Other Neuro Impairments/ 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 nasal Hx Anesthesia Reactions: No - Immunization History Date of Tetanus Vaccine: Unk Date of Influenza Vaccine: Fall 2012 Infectious Disease History: No Infectious Disease History: Reports: Hx of Known/Suspected MRSA Denies: Hx Hepatitis, Hx Human Immunodeficiency Virus (HIV), History Other Infectious Disease, Traveled Outside the [place] in Last 30 Days - Family History Known Family History: Positive: Diabetes - Social History Alcohol Use: Rare Hx Substance Use: No Substance Use Type: Reports: None Substance Use Comment - Amount & Last Used: medical marijauna- asthma- and black outs Hx Tobacco Use: No Smoking Status (MU): Former Smoker Length of Time of Smoking/Using Tobacco: 2 yrs Have You Smoked in the Last Year: No Review of Systems Constitutional: Negative Eyes: Negative ENT: Negative Cardiovascular: Negative Positive: Shortness Of Breath, Cough Positive: Vomiting, Nausea Genitourinary: Negative Musculoskeletal: Negative Skin: Negative Neurological/Mental Status: Negative Psychological: Normal All Other Systems Reviewed And Are Negative: Yes Physical Exam Triage Information Reviewed: Yes Vital Signs On Initial Exam: Initial Vitals Temp Pulse Resp BP Pulse Ox 98.1 F 71 16 185/83 98 06/21/19 21:57 06/21/19 21:57 06/21/19 21:57 06/21/19 21:57 06/21/19 21:57 Vital Signs Reviewed: Yes Appearance: Positive: Well-Appearing Skin: Positive: Warm Head/Face: Positive: Normal Head/Face Inspection Eyes: Positive: Normal Neck: Positive: Supple Respiratory/Lung Sounds: Positive: Clear to Auscultation Cardiovascular: Positive: Normal Abdomen Description: Positive: Nontender Musculoskeletal: Positive: Normal Neurological: Positive: Normal Psychiatric: Positive: Normal AVPU Assessment: Alert - [place] Coma Scale Best Eye Response: 4 - Spontaneous Best Motor Response: 6 - Obeys Commands Best Verbal Response: 5 - Oriented Coma Scale Total: 15 Procedures - Sedation Patient Received Moderate/Deep Sedation with Procedure: No Diagnostics - Vital Signs Vital Signs Temp Pulse Resp BP Pulse Ox 06/21/19 22:03 76 97 06/21/19 22:02 73 158/83 98 06/21/19 21:57 98.1 F 71 16 185/83 98 - Laboratory Lab Statement: Any lab studies that have been ordered have been reviewed, and results considered in the medical decision making process. Course/Dx - Course Course Of Treatment: Patient complains of chronic COPD with associated wheezing and episodes of shortness of breath, chronic back spasm, nausea and vomiting starting yesterday. Patient has received new prescriptions for back spasm and COPD however states insurance is refusing to pay for her Breo. Patient has albuterol inhaler, currently taking prednisone, meloxicam for back spasm and Tessalon Perles for cough. Patient denies active SOB here in ED, CP, fever, sore throat, abdominal pain, change in urine, change in BM. Patient was hoping we could do something about her Breo. Medical history is COPD, asthma, chronic cough. Positive smoker. Vital signs normal limits. Patient has albuterol inhaler and taking prednisone. Patient Zofran here in ED, Rx for same. Follow- up with primary care for further management of COPD. - Diagnoses Provider Diagnoses: Back muscle spasm, Nausea & vomiting, COPD (chronic obstructive pulmonary disease) - Critical Care Time Critical Care Statement: Critical care time is provided exclusive of any time spent performing procedures. Discharge ED - Sign-Out/Discharge Documenting (check all that apply): Patient Departure - Discharge Plan Condition: Stable Disposition: HOME Prescriptions: Ondansetron ODT TAB* [Zofran 4 MG Odt TAB*] 4 mg PO Q8H PRN 4 Days #14 tab.odt PRN Reason: Nausea Patient Education Materials: COPD (Chronic Obstructive Pulmonary Disease) (ED) , Acute Nausea and Vomiting (ED), Muscle Spasm (ED) Referrals: Michelle Gottlieb MD [Primary Care Provider] - Additional Instructions: Take Zofran under the tongue every 6-8 hours as needed for nausea and vomiting. Continue fluids to maintain hydration. Follow-up with primary care for further management of chronic COPD and back pain. Return to the ED for any new or worsening symptoms. - Billing Disposition and Condition Condition: STABLE Disposition: Home
--- OUTSIDE RECORDS SUMMARY | 2019-06-21 22:16 | XMS REPORT | Continuity of Care Document ---
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 Problems Active Problems Provider Date H/O: multiple allergies Madhu Vaz NP Onset: 05/16/2016 Anxiety disorder Micky Nagy M.D.,FACP Onset: 06/13/2016 Personality disorder Micky Nagy M.D.,FACP Onset: 06/13/2016 Note: per patient Allergic asthma Micky Nagy M.D.,FACP Onset: 08/19/2016 Note: clincal, negative PFTs Migraine without aura Micky Nagy M.D.,FACP Onset: 06/23/2017 Essential hypertension Michelle Gottlieb MD Onset: 02/07/2018 Social History Type Date Description Comments Sex Unknown Tobacco Use Start: Unknown End: Former Cigarette Smoker Unknown ETOH Use 07/27/2017 Occasionally consumes alcohol Recreational Drug Use Denies Drug Use Tobacco Use Start: Unknown End: Patient is a former smoker Unknown Smoking Status Reviewed: 05/14/19 Patient is a former smoker Exercise Type/Frequency Walks 4 times a week Allergies, Adverse Reactions, Alerts Active Allergies Reaction Severity Comments Date Penicillin Anaphylaxis Severe 06/11/2014 Amoxicillin Anaphylaxis Severe all of the cillin family causes 06/11/2014 reaction Claritin-D Severe SOB 06/13/2016 Lisinopril cough 02/26/2018 Medications Active Medications SIG Qnty Indications Ordering Date Provider Airduo Respiclick 1 inh twice a day 1units Michelle Gottlieb MD 06/21/2019 232/14 232-14mcg/Act Aerosol Medrol take as directed 21units J45.991 Michelle Gottlieb MD 06/18/2019 4mg TBPK on pack Breo Ellipta one inhalation 28units J45.991 Michelle Gottlieb MD 06/18/2019 once a day 200-25mcg/Inh Aerosol J45.21 Automatic Blood 1 adult cuff 1units I10 Michelle Gottlieb MD 06/18/2019 Pressure Monitor w/unit for wrist Kit Benzonatate Take One Capsule 30caps Mai Caba, 05/29/2019 200mg By Mouth Three N.P. Capsules Times Daily as Needed For Cough Allergy Relief Take one tablet 14tabs Rosalina Rosenbaum MD 05/20/2019 Cetirizine daily 10mg Tablets Baclofen take 1 tab at bed 60tabs Kaylie Lopez 02/08/2019 10mg Tablets time as needed, Kilo, FACP may take 1 tab during day if needed Meloxicam take one tab daily 14tabs M54.5 Michelle Gottlieb MD 02/06/2019 7.5mg Tablets as needed for pain, avoid other nsaids Sumatriptan Succinate 1/2 to 1 tab at 9tabs Wilman Jordan NP 11/27/2018 onset of migraine, 100mg Tablets may repeat after 2 hours if needed Avapro 1/2 tab by mouth 15tabs Michelle Gottlieb MD 05/08/2018 150mg Tablets every day Meclizine HCL take 1 tablet 30tabs G43.A0 Michelle Gottlieb MD 03/30/2018 25mg every 6 hours as Tablets needed for vertigo. Aquaphor 3 In 1 Diaper Apply twice daily 1units L20.9 Micky Herr 2018 Rash Cream to affected skin. Kilo Nagy,FACP 15% Cream Pennsaid 2-3 ggt to 112gm Micky Herr 01/18/2018 2% Solution affected joints Kilo Nagy,SHANELLE twice a day as needed Ortho Tri-Cyclen Lo 1 by mouth every 28tabs N94.5 Dvorah Lenny, MD 2017 day 0.18/0.215/0.25 mg-25 mcg Tablets Vicks Cool Mist use as directed 1units Micky Herr 12/02/2016 Humidifier Kilo Nagy,FACP W/Air-Filter/[place] [employer] [facility] 1.2Gal Misc Ureacin-20 apply topically 113.400gm Micky Herr 10/20/2016 20% Cream daily to heels Kilo Nagy,FACP Ventolin HFA 2 puffs by mouth 18units Mai Caba, 08/19/2016 108(90Base) four times a day N.P. mcg/Act Aerosol as needed Fluticasone Propionate 1 spray both 16gm J30.2 Micky Herr 07/06/2016 nostril Kilo Nagy,FACP 50mcg/Act Suspension Benadryl Allergy 1-2 cap at bedtime J30.2 Unknown 25mg Daily for next 3 Capsules weeks then as needed Gabapentin 1 by mouth three Unknown 300mg Capsules times a day Escitalopram Oxalate 1 by mouth every Unknown 20mg day Tablets Prazosin HCL take 2 at bedtime Unknown 1mg Capsules History Medications Azithromycin two tabs day 6tabs J45.21 Mai Caba, 05/14/2019 - 250mg one, one daily N.P. 05/24/2019 Tablets till gone Benzonatate one by mouth 30caps J45.21 Mai Caba, 05/14/2019 - 200mg three times N.P. 05/28/2019 Capsules daily as needed for cough Baclofen 1 by mouth every 60tabs M54.5 Kaylie Lopez, 02/08/2019 - 5mg Tablets night at bedtime Kilo, FACP 02/08/2019 as needed, may use twice daily as needed Immunizations CPT Code Status Date Vaccine Reaction Lot # [id number] Given 11/13/2018 Fluzone High Dose 79524 Given 11/20/2017 Influenza Virus Vaccine, [id number] Quadrivalent, Split, Preservative Free 97504 Given 01/20/2017 Pneumonia Vaccine [id number] 31253 Given 11/25/2016 Influenza Virus Vaccine, no immediate reaction, [id number] Quadrivalent, Split, pt tolerated well Preservative Free Vital Signs Date Vital Result Comment 05/14/2019 1:32pm Height 64 inches 5'4" Weight 250.50 lb Heart Rate 80 /min BP Systolic Sitting 149 mmHg BP Diastolic Sitting 77 mmHg Body Temperature 98.0 F O2 % BldC Oximetry 99 % BMI (Body Mass Index) 43.0 kg/m2 02/08/2019 1:38pm Height 64 inches 5'4" Weight 232.00 lb Heart Rate 68 /min BP Systolic Sitting 129 mmHg Rue lg cuff BP Diastolic Sitting 74 mmHg Rue lg cuff O2 % BldC Oximetry 98 % BMI (Body Mass Index) 39.8 kg/m2 Results Test Acquired Date Facility Test Result H/L Range Note Laboratory test 06/10/2019 [facility] Covid19, Undetected Undetected [address] [place] [address] [phone] Comp Metabolic 03/04/2019 [facility] Sodium 140 mmol/L Normal 135-145 Panel [address] [place], [place] [id number] [phone] Potassium 4.0 mmol/L Normal 3.5-5.0 Chloride 105 mmol/L Normal 101-111 Co2 Carbon Dioxide 27 mmol/L Normal 22-32 Anion Gap 8 mmol/L Normal 2-11 Glucose 97 mg/dL Normal 70-100 Blood Urea Nitrogen 11 mg/dL Normal 6-24 Creatinine 0.73 mg/dL Normal 0.51-0.95 BUN/Creatinine Ratio 15.1 Normal 8-20 Calcium 9.4 mg/dL Normal 8.6-10.3 Total Protein 7.0 g/dL Normal 6.4-8.9 Albumin 4.2 g/dL Normal 3.2-5.2 Globulin 2.8 g/dL Normal 2-4 Albumin/Globulin Ratio 1.5 Normal 1-3 Total Bilirubin 0.40 mg/dL Normal 0.2-1.0 Alkaline Phosphatase 90 U/L Normal 34-104 Alt 15 U/L Normal 7-52 Ast 16 U/L Normal 13-39 Egfr Non- 88.3 >60 Egfr 106.8 >60 2 Lipid Profile 03/04/2019 [facility] Triglycerides 153 mg/dL 3 (Trig/Chol/HDL) [address] [place] [address] [phone] Cholesterol 199 mg/dL 4 HDL Cholesterol 38.0 mg/dL 5 LDL Cholesterol 130 mg/dL 6 Laboratory 03/04/2019 [facility] TSH (Thyroid 1.91 Normal 0.34 -5.60 test finding [address] Stim Horm) mcIU/[place] [address] [phone] Laboratory 03/04/2019 [facility] Hemoglobin 5.5 % Normal 4.0- 5.6 7 test finding [address] [facility] A1c ([place] [address] HGB) [phone] 1 SARS-CoV-2 RNA is not detected. ADDITIONAL INFORMATION Testing was performed using the julio SARS-CoV-2 assay ([employer] on the julio 6800 System. Fact sheets for this Emergency Use Authorization (EUA) assay can be found at the following links: For Healthcare Providers: https://www.fda.gov/media/202606/download For Patients: https://www.fda.gov/media/842345/download Test Performed by: [facility] [address] [place] [address] Senior Controls Analyst: Vijay Devries M.D. Ph.D.; CLIA# [id number] 2 Because ethnic data is not always readily available, this report includes an eGFR for both -Americans and non- Americans. The National Kidney Disease Education Program (NKDEP) does not endorse the use of the MDRD equation for patients that are not between the ages of 18 and 70, are , have extremes of body size, muscle mass, or nutritional status, or are non- or non-. According to the National Kidney Foundation, irrespective of diagnosis, the stage of the disease is based on the level of kidney function: Stage Description GFR(mL/min/1.73 m(2)) 1 Kidney damage with normal or decreased GFR 90 2 Kidney damage with mild decrease in GFR 60-89 3 Moderate decrease in GFR 30-59 4 Severe decrease in GFR 15-29 5 Kidney failure <15 (or dialysis) 3 Desirable: <150 Borderline High: 150-199 High: 200-499 Very High: >500 4 Desirable: <200 Borderline High: 200-239 High: >239 5 Low: <40 Desirable: 40-60 High: >60 6 Desirable: <100 Near Optimal: 100-129 Borderline High: 130-159 High: 160-189 Very High: >189 7 Therapeutic target for the treatment of diabetes mellitus patients is <7% HBA1C, and in selective patients <6.0%. Please refer to [place] [employer] diabetic care guidelines for further information. Procedures Date Code Description Status 09/20/2018 53248930 Mammogram Completed Medical Devices Description No Information Available Encounters Type Date Location Provider Dx Diagnosis Office Visit 06/18/2019 [facility] Internal Michelle Gottlieb MD M54.6 Pain in thoracic 9:00a Medicine - [facility] spine J45.991 Cough variant asthma I10 Essential (primary) hypertension Office Visit 05/14/2019 1:20p [facility] Internal Mai Caba J45.21 Mild intermittent Medicine - N.P. asthma with [facility] (acute) exacerbation Office Visit 02/08/2019 3:30p [facility] Internal Kaylie Lopez M54.5 Low back pain Larissa Lock M.D., [facility] Office Visit 02/06/2019 2:00p [facility] Internal True Pinto M54.Berta Low back pain Larissa Lockhart M.D. [facility] Assessments Date Code Description Provider 06/18/2019 M54.6 Pain in thoracic spine Michelle oGttlieb MD 06/18/2019 J45.991 Cough variant asthma Michelle Gottlibe MD 06/18/2019 I10 Essential (primary) hypertension Michelle Gottlieb MD 05/14/2019 J45.21 Mild intermittent asthma with (acute) Mai Caba N.P. exacerbation 02/08/2019 M54.5 Low back pain Kaylie Lopez M.D., FACP 02/06/2019 M54.5 Low back pain True Lockhart M.D. Plan of Treatment Future Appointment(s):08/30/2019 1:00 pm - Michelle Gottlieb MD at [facility] Internal Medicine - [facility]06/18/2019 - Michelle Gottlieb MDM54.6 Pain in thoracic spineComments :I suspect a sprained rib or muscle from all the coughing. a chest x-ray will make sure you don't have any broken ribs (unlikely) or pneumonia.I recommend applying warm compress to the area, take the meloxicam and baclofen .You can try self massage with a tennis ball against the wallJ45.991 Cough variant asthmaNew Medication:Medrol 4 mg - take as directed on packBreo Ellipta 200-25 mcg/Inh - one inhalation once a dayComments:I am increasing your Breo inhaler and prescribing a 6 day course of steroids. A chest x-ray is ordered to make sure you don't have walking pneumoniaFollow up:in 1 week if not better, earlier if worse or new [id number] Essential (primary) hypertensionNew Medication: Automatic Blood Pressure Monitor - 1 adult cuff w/unit for wristComments:I would like you to monitor your blood pressure at home once a week. If your readings at home are consistently higher than 140/90, please call the office. Functional Status Description No Information Available Mental Status Description No Information Available Referrals Description No Information Available
--- OUTSIDE RECORDS SUMMARY | 2019-06-21 22:16 | XMS REPORT | Continuity of Care Document ---
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 - Family Medicine Care Team Information Motel Maid Problems Active Problems Provider Date H/O: multiple [...] Medications SIG Qnty Indications Ordering Date Provider Medrol take as directed units J45.991 Michelle Gottlieb MD 06/18/2019 4mg TBPK on pack Breo Ellipta one inhalation 28units Michelle Gottlieb MD 06/18/2019 once a day 200-25mcg/Inh Aerosol Automatic Blood 1 adult cuff 1units I10 Michelle Gottlieb MD 06/18/2019 Pressure Monitor w/unit for wrist Kit Benzonatate Take One Capsule 30caps Mai Rosales, 05/29/2019 200mg By Mouth Three N.P. Capsules Times Daily as Needed For Cough Allergy Relief Take one tablet 14tabs Rosalina Rosenbaum MD 05/20/2019 Cetirizine daily 10mg Tablets Baclofen take 1 tab at bed 60tabs Kaylie Lopez, 02/08/2019 10mg Tablets time as needed, SHANELLE Boateng may take 1 tab during day if needed Meloxicam take one tab 14tabs M54.5 Michelle Gottlieb MD 02/06/2019 7.5mg daily as needed Tablets for pain, avoid other nsaids Sumatriptan 1/2 to 1 tab at 9tabs Wilman Jordan NP 11/27/2018 Succinate onset of 100mg migraine, may Tablets repeat after 2 hours if needed Avapro 1/2 tab by mouth 15tabs Michelle Gottlieb MD 05/08/2018 150mg Tablets every day Meclizine HCL take 1 tablet 30tabs G43.A0 Michelle Gottlieb MD 03/30/2018 25mg every 6 hours as Tablets needed for vertigo. Aquaphor 3 In 1 Apply twice daily 1units L20.9 Micky Herr 03/30/2018 Diaper Rash Cream to affected skin. Kilo Nagy,SHANELLE 15% Cream Pennsaid 2-3 ggt to 112gm Micky Herr 01/18/2018 2% Solution affected joints Kilo Nagy,SHANELLE twice a day as needed Ortho Tri-Cyclen Lo 1 by mouth every 28tabs N94.5 Indio Galvez, 2017 day 0.18/0.215/0.25 mg-25 mcg Tablets Vicks Cool Mist use as directed 1units Micyk Herr 12/02/2016 Humidifier Kilo Nagy,FACP W/Air-Filter/[place] [employer] 1.2Gal Misc Ureacin-20 apply topically 113.400gm Micky Herr 10/20/2016 20% Cream daily to heels Kilo Nagy,FACP Ventolin HFA 2 puffs by mouth 18units Mai Rosales, 08/19/2016 four times a day N.P. 108(90Base) mcg/Act as needed Aerosol Fluticasone 1 spray both 16gm J30.2 Micky Herr 07/06/2016 Propionate nostril Kilo Nagy,FACP 50mcg/Act Suspension Benadryl Allergy 1-2 cap at J30.2 Unknown 25mg bedtime Daily for Capsules next 3 weeks then as needed Gabapentin 1 by mouth three Unknown 300mg times a day Capsules Escitalopram Oxalate 1 by mouth every Unknown day 20mg Tablets Prazosin HCL take 2 at bedtime Unknown 1mg Capsules History Medications Azithromycin two tabs day 6tabs J45.21 Mai Encarnaciondestiny, 05/14/2019 - 250mg one, one daily N.P. 05/24/2019 Tablets till gone Benzonatate one by mouth 30caps J45.21 Mai Encarnaciondestiny, 05/14/2019 - 200mg three times N.P. 05/28/2019 Capsules daily as needed for cough Baclofen 1 by mouth every 60tabs M54.5 Kaylie Lopez, 02/08/2019 - 5mg Tablets night at bedtime Kilo, FACP 02/08/2019 as needed, may use twice daily as needed Immunizations CPT Code Status Date Vaccine Reaction Lot # [id number] Given 11/13/2018 Fluzone High Dose 63621 Given 11/20/2017 Influenza Virus Vaccine, [id number] Quadrivalent, Split, Preservative Free 40730 Given 01/20/2017 Pneumonia Vaccine [id number] 93485 Given 11/25/2016 Influenza Virus Vaccine, no immediate [...] Result H/L Range Note Laboratory test 06/10/2019 [facility] Covid19, Undetected Undetected [address] [place] [address] [phone] Comp Metabolic 03/04/2019 [facility] Sodium 140 mmol/L Normal 135-[address] [place] [address] [phone] Potassium 4.0 mmol/L Normal 3.5-5.0 Chloride 105 [...] Egfr 106.8 >60 2 Lipid Profile 03/04/2019 [facility] Triglycerides 153 mg/dL 3 (Trig/Chol/HDL) [address] [place] [address] [phone] Cholesterol 199 mg/dL 4 HDL Cholesterol 38.0 mg/dL 5 LDL Cholesterol 130 mg/dL 6 Laboratory 03/04/2019 [facility] TSH (Thyroid 1.91 Normal 0.34 -5.60 test finding [address] Stim Horm) mcIU/[place] [address] [phone] Laboratory 03/04/2019 [facility] Hemoglobin 5.5 % Normal 4.0- 5.6 7 test finding [address] A1c ([place] [address] HGB) [phone] 1 SARS-CoV-2 RNA is not detected. ADDITIONAL INFORMATION Testing was performed using the julio SARS-CoV-2 assay ([employer] on the jluio 6800 System. Fact sheets for this Emergency Use Authorization (EUA) assay can be found at the following links: For Healthcare Providers: https://www.[employer]ov[employer].gov/media/687659/download For Patients: https://www.[employer]ov[employer].gov/media/077021/download Test Performed by: [facility] [address] [place] [address] Math And Sciences Department Chair: Vijay Devries M.D. Ph.D.; IA# [id number] 2 Because ethnic data is not always [...] in selective patients <6.0%. Please refer to [place] Diabetes Association diabetic care guidelines for further information. Procedures Date Code Description Status 09/20/2018 56293289 Mammogram Completed Medical Devices Description No Information Available Encounters Type Date Location Provider Dx Diagnosis Office Visit 06/18/2019 [facility] Internal Michelle Gottlieb MD M54.6 [facility] J[facility].991 Cough variant asthma I10 Essential (primary) hypertension Office Visit 05/14/2019 1:20p [facility] Internal Mai Caba J45.21 Mild intermittent Medicine - [facility]P. [facility] Office Visit 02/08/2019 3:30p [facility] Internal Jeremie Rod4.Berta Low back pain [facility] 02/06/2019 2:00p [facility] Internal True Chao4.5 Low back pain Larissa Lockhart [facility]. [facility] Ass[facility] Date Code Description Provider 06/18/2019 M54.6 Pain in thoracic spine Michelle Gottlieb MD 06/18/2019 J45.991 Cough variant asthma Michelle Gottlieb MD 06/18/2019 I10 Essential (primary) hypertension Michelle Gottlieb MD 05/14/2019 J45.21 Mild intermittent asthma with (acute) Mai Varn, N.P. exacerbation 02/08/2019 M54.5 Low back pain [facility] 02/06/2019 M54.5 Low back pain True Lockhart M.D. Plan of Treatment Future Appointment(s):08/30/2019 1:00 pm - Michelle Gottlieb MD at [facility] - Michelle Gottlieb MDM54.6 Pain in thoracic [...] 4 mg - take as directed on packNew Xrays:Chest PA & amp; Lat 2 VWS, Ordered: 06/18/19Comments:I am increasing your Breo inhaler and prescribing a 6 day course of steroids. A chest x-ray is ordered to make sure you don't have walking pneumoniaFollow up:in 1 week if not better, earlier if worse or new [id number] Essential (primary) hypertensionNew Medication: Automatic Blood Pressure [...]
--- OUTSIDE RECORDS SUMMARY | 2019-06-21 22:17 | XMS REPORT ---
:1980 Author Organization [facility] Care Team Providers Name Role Phone Zhanna Rowell Primary Care Physician Unavailable Allergies, Adverse Reactions, Alerts Allergy Code CodeSystem Reaction Severity Criticality Status Start Substance Date Moderate Medications Medication Medication Medication Start Stop Route Dose Status Fill Code CodeSystem Date Date Instructions gabapentin 955993 RxNorm 2018-07 oral 300 mg 1 active Take 1 10-08 capsule capsule three three times a times a day as needed day for 30 day(s) buspirone 304366 RxNorm 2018-07 oral 10 mg 1 active 1 tablet 10-08 tablet twice a day twice a for 30 day(s) day escitalopram 085070 RxNorm 2018-07 oral 20 mg 1 active Take 1 tablet oxalate 10-08 tablet once a day once a for 30 day(s) day Problems Problem Name Code CodeSystem Alternate Alternate Start End Status Narrative Code CodeSystem Date Date Other 10559688 SNOMED-CT Active specified 3-22 anxiety disorder Other 05021682 SNOMED-CT Active specified 3-22 anxiety disorder Depressive 95149162 SNOMED-CT Active episode, 3-27 unspecified Relevant diagnostic tests/laboratory data Narrative No Information Procedures Procedure Code CodeSystem Target Date of Status Service Device Device Device Name Site Procedure Delivery Code Name UID Location Office or [id number] SNOMED-CT () 2019-02-13 complete Mental other 7 d Health- outpatient [place] visit for [address] established [id number] patient, [id number] which requires at least 2 of these 3 [place] components: An expanded problem focused history; An expanded problem focused examination; Medical decision making of [facility] Office or [id number] SNOMED-CT () 2018-10-22 complete Mental other 7 d Health- outpatient [place] visit for [address], established [id number] patient, [id number] which requires at least 2 of these 3 [place] components: An expanded problem focused history; An expanded problem focused examination; Medical decision making of low Office or 976330 SNOMED-CT () 2018-08-21 complete Mental other 6 d Health- outpatient [place] visit for [address], established [id number] patient, [id number] which requires at least 2 of these 3 [place] components: A problem focused history; A problem focused examination; [place] medical decision making. Counselin Office or 942920 SNOMED-CT () 2018-07-10 complete Mental other 8 d Health- outpatient Janie visit for [address], established [id number] patient, [phone] which requires at least 2 of these 3 [place] components: A detailed history; A detailed examination; Medical decision making of moderate complexity. Counseling and/o SNOMED-CT () 2018-09-19 complete Mental d Health[address], [id number] SNOMED-CT () 2018-10-29 complete Mental d Health[address], [id number] SNOMED-CT () 2018-12-24 complete Mental d [address], [id number] SNOMED-CT () 2018-06-25 complete Mental d Health[address], [id number] SNOMED-CT () 2019-02-28 complete Mental d Health[address], [id number] SNOMED-CT () 2018-08-08 complete Mental d [address], [id number] Encounters/Encounter Diagnoses Encounter Encounter Diagnosis Diagnosis Diagnosis Date of Service Name Code Code Name CodeSystem Diagnosis Delivery Location 62579609 Other SNOMED-CT [facility] , , disorder , Vital Signs No Information Social History Element Description Description Start End Code CodeSystem AdditionalInfo Date Date SexAssignedAtBirth Female F AdministrativeGender 12 Hospital Discharge Instructions Reason For Referral Medical Equipment FDA Assessments
--- OUTSIDE RECORDS SUMMARY | 2019-06-21 22:17 | XMS REPORT | Continuity of Care Document ---
:1980 External Reference #:[id number] Author Name Mai Caba N.P. (transmitted by agent of provider Kizzy Thornton) Address [address], [place] [address] Care Team Providers Name Role Phone Galileo Rivera MD - Gastroenterology Care Team Information Hand Molder [employer] Caster [phone] Michelle Gottlieb M.D. - Family Medicine Care Team Information Hand Molder [employer] Caster [phone] Problems Active Problems Provider Date H/O: multiple [...] Medications SIG Qnty Indications Ordering Date Provider Azithromycin two tabs day one, 6tabs J45.21 Mai Caba, 05/14/2019 250mg one daily till N.P. Tablets gone Benzonatate one by mouth 30caps J45.21 Mai Caba, 05/14/2019 200mg three times daily N.P. Capsules as needed for cough Baclofen take 1 tab at bed 60tabs Kaylie Lopez, 02/08/2019 10mg Tablets time as needed, Kilo, SHANELLE may take 1 tab during day if needed Meloxicam take one tab 14tabs M54.5 True Pinto 02/06/2019 7.5mg daily as needed Kilo Lockhart Tablets for pain, avoid other nsaids Sumatriptan 1/2 to 1 tab at 9tabs Michelle Gottlieb MD 11/27/2018 Succinate onset of 100mg migraine, may Tablets repeat after 2 hrs if needed Avapro 1/2 tab by mouth [...] directed 1units Micky Herr 12/02/2016 Humidifier Kilo Nagy,SHANELLE W/Air-Filter/[place] [facility] 1.2Gal Misc Breo Ellipta inhale 1 puff by 60units Micky Herr 11/04/2016 mouth every day Kilo Nagy,FACP 100-25mcg/Inh Aerosol Ureacin-20 apply topically 113.400gm Micky Herr 10/20/2016 20% Cream daily to heels Kilo Nagy,FACP Ventolin HFA 2 puffs by mouth 18units Mai Caba, 08/19/2016 four times a day N.P. 108(90Base) mcg/Act as needed Aerosol Fluticasone 1 spray both 16gm J30.2 Micky Herr 07/06/2016 Propionate nostril Kilo Nagy,FACP 50mcg/Act Suspension Zyrtec Allergy 1 by mouth every 30caps J30.2 Micky Herr 10mg day Kilo Nagy,FACP Capsules Benadryl Allergy 1-2 cap at J30.2 Unknown 25mg bedtime Daily for Capsules next 3 weeks then as needed Gabapentin 1 by mouth three Unknown 300mg times a day Capsules Escitalopram Oxalate 1 by mouth every Unknown day 20mg Tablets Prazosin HCL take 2 at bedtime Unknown 1mg Capsules History Medications Baclofen 1 by mouth every 60tabs M54.5 Kaylie Jessica, 02/08/2019 - 5mg night at bedtime Kilo FACP 02/08/2019 Tablets as needed, may use twice daily as needed Immunizations CPT Code Status Date Vaccine Reaction Lot # [id number] Given 11/13/2018 Fluzone High Dose [id number] Given 11/20/2017 Influenza Virus Vaccine, [id number] Quadrivalent, Split, Preservative Free [id number] Given 01/20/2017 Pneumonia Vaccine [id number] Given 11/25/2016 Influenza Virus Vaccine, no immediate [...] Date Facility Test Result H/L Range Note Comp Metabolic 03/04/2019 [facility] Sodium 140 mmol/L Normal 135-[address] [place] [address] [phone] Potassium 4.0 mmol/L Normal 3.5-5.0 Chloride 105 [...] Egfr Non- 88.3 >60 Egfr 106.8 >60 1 Lipid Profile 03/04/2019 [facility] Triglycerides 153 mg/dL 2 (Trig/Chol/HDL) [address] [place] [address] [phone] Cholesterol 199 mg/dL 3 HDL Cholesterol 38.0 mg/dL 4 LDL Cholesterol 130 mg/dL 5 Laboratory 03/04/2019 [facility] TSH (Thyroid 1.91 Normal 0.34 -5.[address] Stim Horm) mcIU/mL [place], [place] [id number] [phone] Laboratory 03/04/2019 [facility] Hemoglobin 5.5 % Normal 4.0- 5.[address] A1c ([place] [address] HGB) [phone] 1 Because ethnic data is not always readily [...] 15-29 5 Kidney failure <15 (or dialysis) 2 Desirable: <150 Borderline High: 150-199 High: 200-499 Very High: >500 3 Desirable: <200 Borderline High: 200-239 High: >239 4 Low: <40 Desirable: 40-60 High: >60 5 Desirable: <100 Near Optimal: 100-129 Borderline High: 130-159 High: 160-189 Very High: >189 6 Therapeutic target for the treatment of diabetes mellitus patients is <7% HBA1C, and in selective patients <6.0%. Please refer to [place] [employer] diabetic care guidelines for further information. Procedures Date Code Description Status 09/20/2018 [id number] Mammogram Completed Medical Devices Description No Information Available Encounters Type Date Location Provider Dx Diagnosis Office Visit 05/14/2019 [facility] Mai Caba, J45.21 Mild intermittent 1:20p Medicine - Ccmob N.P. asthma with (acute) exacerbation Office Visit 02/08/2019 [facility] Kaylie Lopez M54.5 Low back pain 3:30p Larissa Tan M.D., FACP Office Visit 02/06/2019 [facility] True Pinto M54.5 Low back pain 2:00p Larissa Lockhart M.D. Assessments Date Code Description Provider 05/14/2019 J45.21 Mild intermittent asthma with (acute) Mai Caba, N.P. exacerbation 02/08/2019 M54.5 Low back pain Kaylie Lopez M.D., FACP 02/06/2019 M54.5 Low back pain True Lockhart M.D. Plan of Treatment Future Appointment(s):07/09/2019 2:20 pm - Michelle Gottlieb MD at [facility] Internal Medicine - [facility]05/14/2019 - Mai Caba N.P.J45.21 Mild intermittent asthma with (acute) exacerbationNew Medication:Azithromycin 250 mg - two tabs day one, one daily till goneBenzonatate 200 mg - one by mouth three times daily as needed for coughComments:Please continue to use your asthma medications. I have prescribed an antibiotic Azithromycin 250 mg.Take 2 tablets today, then 1 daily for a total of 5 days.To help you with your cough I have prescribed Benzonatate 200 mg. You may take this every 8 hours as needed.If yo do not gradually improve , please contact the office. Functional Status Description No Information Available Mental Status Description No Information Available Referrals Description No Information Available
[2019-06-21] MEDS ORDERED: Diazepam TAB(*) 5 MG PO ONE (22:29)
[2019-06-21] MEDS ORDERED: Ondansetron ODT TAB* 4 MG PO ONE (22:29)
[2019-06-21] MEDS ORDERED: O ndansetron ODT 4MG 5TAB PRPK 4 MG PAK PO ONE (22:30)
[2019-06-21 22:46] VITALS: BP 148/83
== END 2019-06-21 22:44 | disposition home or self-care (01) ==
LOC: ED 21:52
DX: M62.830 Muscle spasm of back (principal); R11.2 Nausea with vomiting, unspecified; J44.9 Chronic obstructive pulmonary disease, unspecified; R06.02 Shortness of breath; Z87.891 Personal history of nicotine dependence; F90.9 Attention-deficit hyperactivity disorder, unspecified type; Z86.14 Personal history of Methicillin resistant Staphylococcus aureus infection; Z88.0 Allergy status to penicillin; Z88.6 Allergy status to analgesic agent; Z88.8 Allergy status to other drugs, medicaments and biological substances; Z91.040 Latex allergy status; Z91.011 Allergy to milk products; Z79.899 Other long term (current) drug therapy; I10 Essential (primary) hypertension
CPT/HCPCS: 99283; A9270-GY